=== PATIENT | female | born 1975 | race Hispanic/Latino ===

== ENCOUNTER 2020-09-08 11:11 | Emergency (ER) | payer OTHER, SELFPAY ==
[2020-09-09 22:05] LABS: SARS-CoV-2 by NAA DETECTED (NotDetected)
[2020-09-09 22:06] LABS: SARS-CoV-2 MS2 Positive; SARS-CoV-2 N Gene Positive; SARS-CoV-2 S Gene Positive; SARS-CoV-2 orf1ab Positive
== END 2020-09-08 12:05 | disposition home or self-care (01) ==
LOC: MADERS 11:11
DX: R43.8 Other disturbances of smell and taste (principal); Z20.828 Contact with and (suspected) exposure to other viral communicable diseases; G43.909 Migraine, unspecified, not intractable, without status migrainosus; Z79.899 Other long term (current) drug therapy
CPT/HCPCS: 87635; 99283; U0003